=== PATIENT | female | born 1990 | race Caucasian/White ===

== ENCOUNTER 2023-10-08 14:20 | Outpatient (CLI) | payer BC, SELFPAY ==
--- NOTE | ~2023-10-08 | US_ITS ---
EXAMINATION: US OB transvaginal DATE: INDICATION: Spotting in first trimester. TECHNIQUE: Real-time transvaginal pelvic ultrasound was performed. COMPARISON: None. FINDINGS: The uterus measures 10.4 x 5.2 x 5.9 cm. There is an intrauterine gestational sac. A yolk sac is iden tified. The crown rump length measures 4 mm, which correlates with an estimated gestational ag e of 6 weeks and 1 day(s) (+/-) 4 day(s). heart motion is identified measuring 113 beats per mi nute (bpm) by M-mode Doppler. The right ovary measures 4.0 x 3.3 x 2.6 cm. The left ovary measures 3. 2 x 1.9 x 2.6 cm. There is no free fluid in the pelvis. IMPRESSION: 1. Single living intrauterine gestation with estimated date of delivery of 06/01/2024. Reviewed, dictated and finalized at location A. IMPRESSION: 1. Single living intrauterine gestation with estimated date of delivery of 05/20.
== END 2023-10-08 14:21 ==
LOC: MICIMG 14:22
PROVIDERS: PCP Obstetrics & Gynecology Gynecology; Visit Provider Obstetrics & Gynecology Gynecology
DX: O26.851 Spotting complicating pregnancy, first trimester (principal); Z3A.00 Weeks of gestation of pregnancy not specified
CPT/HCPCS: 76817

== ENCOUNTER 2023-10-24 08:29 | Emergency (ER) | payer BC, SELFPAY ==
--- NOTE | 2023-10-24 08:30 | ED.URI ---
HPI - URI/Sore Throat General Chief Complaint: Upper Respiratory Infection Stated Complaint: SORE THROAT Time Seen by Provider: 10/24/23 08:39 Source: patient and RN notes reviewed Mode of arrival: ambulatory Limitations: no limitations History of Present Illness HPI Narrative: 33 yo female presents to the [facility] with complaints of a sore throat since yesterday. Reports that she did take Tylenol. Did not measure her temperature. reports 8 weeks Treatments prior to arrival: acetaminophen Related Data Home Medications Medication Instructions Recorded Confirmed albuterol sulfate 90 mcg/actuation inhalation 10/24/23 aerosol inhaler Allergies Allergy/AdvReac Type Severity Reaction Status Date / Time No Known Allergies Allergy Verified 10/24/23 08:39 Review of Systems Review of Systems: All systems reviewed & are unremarkable except as noted in HPI and below Constitutional: Constitutional: Reports no additional constitutional complaints Eyes: Eyes: Reports no additional eye complaints ENT: Reports as per HPI and Reports sore throat Cardiovascular: Cardiovascular: Reports no additional cardiovascular complaints, Denies chest pain and Denies dyspnea Respiratory: Respiratory: Reports no additional respiratory complaints, Denies chest congestion, Denies cough and Denies dyspnea Gastrointestinal: Gastrointestinal: Reports no additional gastrointestinal complaints, Denies abdominal pain, Denies nausea and Denies vomiting Musculoskeletal: Musculoskeletal: Reports no additional musculoskeletal complaints Integumentary/Breasts: Skin/Breast: Reports system reviewed and no additional complaints, except as docu Neurologic: Reports system reviewed and no additional complaints, except as documented Psychiatric: Psychiatric: Reports no additional psychiatric complaints Allergic/Immunologic: Allergic/Immunologic: Reports no additional allergic/immunologic complaints [facility] Past Medical History Medical History (Updated 10/24/23 @ 08:57 by Maria C Wright APRN) Asthma Social History Social History (Updated 10/24/23 @ 08:54 by Maria C Wright APRN) Living arrangements: with family Gender identity (if verbalized by the patient): Female Comments At the time of my signature, I reviewed and agree with the nursing past medical, surgical, social, and family history. There is no relevant family history pertinent to the patient complaint. Exam Const: General: cooperative, healthy appearing, comfortable, no acute distress, well developed, alert and well nourished Nutritional Appearance: well nourished Orientation/consciousness: patient oriented x3 Limitations: no limitations HENMT: Head: normal to inspection Ears: hearing grossly normal bilaterally and external ears normal Face/Nose/Sinus: Normal external nose present, Normal nares present, Normal nasal mucous membranes and turbinates present, normal facial exam and face symmetric Face and sinus: normal facial exam and face symmetric Throat: uvula midline, abnormal tonsil bilateral erythema and hypertrophy 2+; no exudates, posterior oropharynx abnormal erythema; no edema and no exudates and no uvular edema Eyes: General: appearance normal, both eyes and all related structures Alignment and Position: alignment normal Periorbital: periorbital findings normal Pupils: Equal, round and reactive pupils present EOM: EOMs intact bilaterally Neck: Neck: normal visual inspection, full ROM, no lymphadenopathy and no meningeal signs Chest: Chest palpation & inspection: normal inspection of the chest Resp: Effort & Inspection: normal respiratory effort and able to speak in complete sentences Auscultation: clear to auscultation bilaterally, no crackles, no rales, no rhonchi and no wheezes Cardio: Rate: regular rate Rhythm: regular rhythm Skin: General skin exam: normal color and no rashes or lesions noted Lesions: no lesions Rashes: no rashes Trauma: no
[2023-10-24 08:46] VITALS: BP 123/82; PULSE 89; RESP 16; TEMP 36.6; O2SAT 99
== END 2023-10-24 09:01 | disposition home or self-care (01) ==
PROVIDERS: Emergency Provider Nurse Practitioner; PCP Obstetrics & Gynecology Gynecology
DX: J02.0 Streptococcal pharyngitis (principal); J45.909 Unspecified asthma, uncomplicated
CPT/HCPCS: 87880; 99213; G0463

== ENCOUNTER 2024-01-31 11:15 | Outpatient (CLI) | payer BC, SELFPAY ==
--- NOTE | ~2024-01-31 | US_ITS ---
EXAMINATION: US OB /maternal detail DATE: 01/31/2024 12:13 INDICATION: anatomic survey. TECHNIQUE: Real-time ultrasound of the pelvis was performed. COMPARISON: Ultrasound 10/08/2023 FINDINGS: There is a single living fetus in vertex presentation. The placenta is posterior, 6.2 cm from the ce rvix. The cervical length is 3.3 cm on transabdominal images, which is normal. heart rate is 15 4 beats per minute (bpm). The amniotic fluid volume is subjectively normal. The following biometric data were obtained: Biparietal diameter (BPD): 5.5 cm; head circumference (HC): 21.3 cm; abdominal circumference (AC): 18 .0 cm; femur length (FL): 4.1 cm. These measurements are concordant. Estimated weight is 566 g +/- 85 g, which correlates with the 72nd percentile when 06/01/24 is u sed as estimated date of delivery. As single measurements, these parameters are each equal to the following estimated gestational ages: BPD: 22 weeks 6 days. HC: 23 weeks 3 days. AC: 22 weeks 6 days. FL: 23 weeks 3 days. estimated gestational age based solely on measurements from this exam is 23 weeks 1 days +/- 1 weeks 4 days. The cerebral ventricles, cerebellum, cisterna magna, lip, and spine are normal. The heart is normal. The diaphragm, stomach, kidneys, and bladder are normal. There are two umbilical arteries to yield a 3-vessel cord. The cord insertion is normal. IMPRESSION: 1. Single living fetus in vertex presentation. 2. Estimated weight is 566 g +/- 85 g, which correlates with the 72nd percentile when 06/01/24 is used as estimated date of delivery. This date was set by ultrasound on 10/08/2023. 3. Normal anatomic survey. Reviewed, dictated and finalized at location A. IMPRESSION: 1. Single living fetus in vertex presentation. 2. Estimated weight is 566 g +/- 85 g, which correlates with the 72nd pe rcentile when 06/01/24 is used as estimated date of delivery. This date was set by ultrasound on 10/08/2023. 3. Normal anatomic survey.
== END 2024-01-31 11:16 | disposition home or self-care (01) ==
LOC: MICIMG 11:17
PROVIDERS: PCP Obstetrics & Gynecology Gynecology; Visit Provider Obstetrics & Gynecology Gynecology
DX: Z36.9 Encounter for antenatal screening, unspecified (principal)
CPT/HCPCS: 76805

== ENCOUNTER 2024-03-19 09:55 | Outpatient (CLI) | payer BC, SELFPAY ==
--- NOTE | ~2024-03-19 | US_ITS ---
EXAMINATION: US OB follow up DATE: 03/19/2024 10:18 INDICATION: Size greater than dates. TECHNIQUE: Real-time ultrasound of the pelvis was performed. COMPARISON: Ultrasound 01/31/2024 FINDINGS: There is a single living fetus in vertex presentation. The placenta is posterior. heart rate i s 153 beats per minute (bpm). The amniotic fluid index is 15.1 cm, which is normal. The following biometric data were obtained: Biparietal diameter (BPD): 7.8 cm; head circumference (HC): 28.7 cm; abdominal circumference (AC): 27 .7 cm; femur length (FL): 5.6 cm. These measurements are concordant. Estimated weight is 1664 g +/- 250 g, which correlates with the 87th percentile when 06/01/24 is used as estimated date of delivery. As single measurements, these parameters are each equal to the following estimated gestational ages: BPD: 31 weeks 2 days. HC: 31 weeks 4 days. AC: 31 weeks 5 days. FL: 29 weeks 2 days. estimated gestational age based solely on measurements from this exam is 31 weeks 0 days +/- 2 weeks 1 days. IMPRESSION: 1. Single living fetus in vertex presentation. 2. Estimated weight is 1664 g +/- 250 g, which correlates with the 87th percentile when 5 is used as estimated date of delivery. This date was set by ultrasound on 10/08/2023. Reviewed, dictated and finalized at location B. IMPRESSION: 1. Single living fetus in vertex presentation. 2. Estimated weight is 1664 g +/- 250 g, which correlates with the 87th percentile when 06/01/24 is used as estimated date of delivery. This date was se t by ultrasound on 10/08/2023.
== END 2024-03-19 09:56 | disposition home or self-care (01) ==
PROVIDERS: PCP Advanced Practice Midwife; Visit Provider Advanced Practice Midwife
DX: O36.63X0 Maternal care for excessive fetal growth, third trimester, not applicable or unspecified (principal); Z3A.31 31 weeks gestation of pregnancy
CPT/HCPCS: 76816

== ENCOUNTER 2024-05-07 02:49 | Inpatient (IN) | payer BC, SELFPAY ==
[2024-05-07] VITALS (157 sets, daily range): BP systolic 77–133; BP diastolic 37–117; PULSE 76–246; RESP 16–20; TEMP 36.1–36.9; O2SAT 96–100; BMI 38.8
[2024-05-07 03:35] LABS: Basophils Absolute Auto 0.1 K/mm3 (0.0-0.1); Basophils Percent Auto 0.4 % (0.2-1.2); Eosinophils Absolute Auto 0.4 K/mm3 (0-0.3); Eosinophils Percent Auto 2.6 % (0-4.4); Hematocrit 33.1 % (37.0-47.0); Hemoglobin 11.2 g/dL (12.0-15.0); Immature Granulocyte Absolute 0.08 K/mm3 (0.00-0.031); Immature Granulocyte Percent A 0.6 % (0-0.5); Lymphocytes Absolute Auto 2.65 K/mm3 (0.9-3.2); Lymphocytes Percent Auto 19.7 % (18.3-44.2); Mean Corpuscular HGB Conc 33.8 g/dl (32-36); Mean Corpuscular Hemoglobin 29.9 pg (26-34); Mean Corpuscular Volume 88.3 fl (80-100); Mean Platelet Volume 10.7 fl (7.4-10.4); Monocytes Absolute Auto 0.7 K/mm3 (0.1-0.6); Monocytes Percent Auto 5.3 % (2.6-8.5); Neutrophils Absolute Auto 9.6 K/mm3 (1.3-6.7); Neutrophils Percent Auto 71.4 % (45.5-73.1); Platelet Count Result 257 k/mm3 (150-375); Red Blood Count 3.75 M/mm3 (4.2-5.4); Red Cell Distribution Width 12.7 % (11.5-14.5); White Blood Count 13.5 K/mm3 (4.5-10.0)
[2024-05-07] MEDS: LACTATED RINGERS 1,000 ML 125 ML IV CONT ×3 (03:45→06:48)
[2024-05-07] MEDS: AMPICILLIN 2 GM/NS 100 ML 2 GM/100 ML BAG 200 GM (03:45)
--- NOTE | 2024-05-07 03:49 | P.PNAN_ITS ---
Anes - Eval Pre Procedure Procedure: Labor epidural Date/Time: 05/07/24 03:49 Surgeon: Iglesia Preop Diagnosis: Abdominal pain with contractions Pre Op Diagnosis: Leaking fluid Patient Data Age: 33 Gender: F Height: 1.63 m Weight: 102.7 kg Last Vital Signs Pulse 96 05/07/24 03:45 BP 112/70 05/07/24 03:45 Allergies Allergy/AdvReac Type Severity Reaction Status Date / Time SEASONAL Allergy Mild Congested Uncoded 05/07/24 03:26 Home Medications ?Medication ?Instructions ?Recorded ?Confirmed ?Type albuterol sulfate 90 mcg/actuation See Rx Instructions .Route .COMPLEX 10/24/23 10/24/23 History aerosol inhaler amoxicillin 875 mg tablet 875 mg PO Q12H #20 tabs 10/24/23 Rx Laboratory Tests 05/07/24 03:28 WBC 13.5 H K/mm3 (4.5-10.0) RBC 3.75 L M/mm3 (4.2-5.4) Hgb 11.2 L g/dL (12.0-15.0) Hct 33.1 L % (37.0-47.0) MCV 88.3 fl (80-100) MCH 29.9 pg (26-34) MCHC 33.8 g/dl (32-36) RDW 12.7 % (11.5-14.5) Plt Count 257 k/mm3 (150-375) MPV 10.7 H fl (7.4-10.4) Immature Gran % (Auto) 0.6 H % (0-0.5) Neut % (Auto) 71.4 % (45.5-73.1) Lymph % (Auto) 19.7 % (18.3-44.2) Kemper % (Auto) 5.3 % (2.6-8.5) Eos % (Auto) 2.6 % (0-4.4) Baso % (Auto) 0.4 % (0.2-1.2) Lymph # (Auto) 2.65 K/mm3 (0.9-3.2) Kemper # (Auto) 0.7 H K/mm3 (0.1-0.6) Eos # (Auto) 0.4 H K/mm3 (0-0.3) Baso # (Auto) 0.1 K/mm3 (0.0-0.1) Abs Immat Gran (auto) 0.08 H K/mm3 (0.00-0.031) Absolute Neuts (auto) 9.6 H K/mm3 (1.3-6.7) Absolute Nucleated RBC 0.000 K/mm3 (0.0-0.012) Nucleated RBC % 0.0 % (0.0-0.2) RPR Pending HIV 1&2 Ab/P24 Ag 4thGn Pending : gestational age HCG: positive Patient hx anesthesia problems: none Family hx anesthesia problems: none Results Review: All pre-operative results and documents have been reviewed as part of the pre- operative evaluation. [facility] Past Medical History Medical History Morbid obesity and not yet delivered Condyloma Asthma Family History Family History Grandparent Diabetes mellitus Social History Social History Substance use: never Living arrangements: with family Gender identity (if verbalized by the patient): Female Spiritual care concerns: No Exam Day of Procedure 05/07/24 03:49 Patient weight: morbidly obese Airway: Mallampati scale class II
[2024-05-07 04:25] LABS: Rapid Plasma Reagin Non-Reactive (NonReactive)
[2024-05-07 04:26] LABS: HIV 1/2 Ab P24 Ag Result Negative (Negative)
--- NOTE | 2024-05-07 04:37 | LDADM ---
This patient, Sultana Ramirez, was admitted to Labor/Delivery/Recovery 106 on 05/07/24 at 02:49. Plans for labor, pain management and were discussed with patient. Patient/family oriented to hospital policies and general routines including ID bracelet, bed and alarms, visiting hours, pain management, procedures, bathroom and other care routines, personal items, smoking policy, room service/diet and guest tray routines, security routines, and visiting hours. Patient/Family are encouraged to report perceived risks to care and to ask questions if they do not understand what they are told or what they should do. See OBIX for further documentation.
[2024-05-07] MEDS: ACETAMINOPHEN 500 MG TABLET 1000 MG (05:10)
--- NOTE | 2024-05-07 05:24 | WPDOBADMIT ---
Obstetrics - Admit Note Admission Note: record reviewed. No pertinent additions to the history and/or any subsequent changes in the physical findings that are not consistent with the expected course of the were found. Additions to the history and/or subsequent changes in the physical findings follow. Pt arrived with ROM at 0200 this am, clear fluid.
--- NOTE | 2024-05-07 05:25 | P.PNOB_ITS ---
Pain Control Date/time seen: 05/07/24 05:10 Pain control: epidural Pelvic Exam Dilation (cm): 4 Effacement (%): 50 station: -2 Amniotic membrane status: Ruptured Contractions Monitor mode: External Contraction frequency: 3 (3-5) Contraction pattern: Regular Contraction intensity: Moderate Status Comments: FHTs 135 baseline, moderate variability, +accelerations. Assessment and Plan Plan: continuous present management Comments: CNM to bedside. Discussed plan of care. No evidence of infection at this time. SVE unchanged. Pt receiving ampicillin for unknown GBS/PROM. If no cervical change after next dose of ampicillin, plan to start pitocin augmentation. 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 Anticipate vaginal . Will update Dr. Parekh.
[2024-05-07] MEDS: OXYTOCIN 30 UNITS/NS 500 ML 30 UNITS/500 ML BAG IV CONT (06:31)
[2024-05-07] MEDS: CALCIUM CARBONATE (TUMS) 500 MG (200 MG ELEMENTAL) PO (06:48)
[2024-05-07] MEDS: LORATADINE 10 MG TABLET PO (06:48)
[2024-05-07] MEDS: AMPICILLIN 1 GM/NS 50 ML 1 GM/50 ML BAG IVPB (07:45)
--- NOTE | 2024-05-07 11:22 | P.PCNOB_ITS ---
OB - Vaginal Delivery Note Procedure Delivery date: 05/07/24 Events: Premature Rupture of Membranes Induction method: None Delivery augmentation: Pitocin Delivery monitor: External FHT and Internal Uterine Route of delivery: Episiotomy description: None Laceration Description: Superficial (periurethral) Specimen: Yes (placenta) Quantitative Blood Loss (ml): 325 Anesthesia type: Epidural Disposition: Floor Complications: No immediate complications Narrative: Sultana arrived after spontaneous rupture membranes at home. Antibiotics were given for unknown GBS and status. Pitocin was given for augmentation of labor. She progressed steadily to complete dilation and pushed extremely well with contractions. She brought the head to a crown and delivered immedia tely thereafter. There was good restitution observed in and tight double nuchal cord was identified. The anterior and posterior shoulders delivered smoothly and the remainder of the infant was delivered in the somersault fashion. The nuchal cord was reduced and the was placed on the maternal abdomen. After 1 minute of life, the cord was doubly clamped and cut. Cord gases, cord blood, cord segment were obtained. The placenta delivered spontaneously and was found to be intact. A 1.5 cm very superficial periurethral laceration was noted but was hemostatic and did not require repair. Uterine tone remained firm and there was excellent hemostasis. All deliveries counts correct. Mother and baby skin to skin in the delivery room. [place] Baby Date of : 05/07/24 Time of : 11:05 Gestational Age by Date: 36 Infant gender: Male Weight (pounds): 0 (unavailable at the time of this note) presentation: vertex position: Right Occiput Anterior Placenta delivery description: Spontaneous and Normal Configuration Cord Vessel Description: 3 Vessels, Nuchal Cord (x2 ), Tight and Delayed Cord Clamping score one minute: 8 score five minutes: 9
--- NOTE | 2024-05-07 11:29 | P.DS_ITS ---
DS: Admitting Diagnosis Discharge Date 05/09/[address] Lafleur Admitting Diagnosis PROM DS: Discharge Diagnosis Discharge Diagnosis (1) (normal spontaneous vaginal delivery): Code(s): O80 - Encounter for full-term uncomplicated delivery Status: Acute (2) Patient is a currently breast-feeding mother: Code(s): Z39.1 - Encounter for care and examination of lactating mother Status: Acute (3) Rubella non-immune status, delivered, current hospitalization: Code(s): O99.892 - Other specified diseases and conditions complicating childbirth; Z28.39 - Other underimmunization status Status: Acute OB - DS: Summary Hospital Course Hospital Course: Uncomplicated OB Procedures : Ultrasound OB Procedures Intrapartum: Spontaneous Vag Delivery and GBS prophylaxis OB Procedures: : None Peripartum Data Delivery Method: Natural Vaginal Laceration Description: Superficial (periurethral) Episiotomy description: None complications: none Status at Discharge Functional status at discharge: independent ambulation Overall status at discharge: patient is progressing back to baseline Time Spent with Patient Time attestation: Total time spent providing and/or coordinating discharge services: DS: Data Data Completed and Pending Labs on day of discharge: Labs from last 24 hours 05/07/24 03:28 WBC 13.5 H RBC 3.75 L Hgb 11.2 L Hct 33.1 L MCV 88.3 MCH 29.9 MCHC 33.8 RDW 12.7 Plt Count 257 MPV 10.7 H Immature Gran % (Auto) 0.6 H Neut % (Auto) 71.4 Lymph % (Auto) 19.7 Baldwin % (Auto) 5.3 Eos % (Auto) 2.6 Baso % (Auto) 0.4 Lymph # (Auto) 2.65 Baldwin # (Auto) 0.7 H Eos # (Auto) 0.4 H Baso # (Auto) 0.1 Abs Immat Gran (auto) 0.08 H Absolute Neuts (auto) 9.6 H Absolute Nucleated RBC 0.000 Nucleated RBC % 0.0 RPR Non-reactive HIV 1&2 Ab/P24 Ag 4thGn Negative Blood Type O Positive Antibody Screen Negative Discharge Plan Discharge Attending physician on discharge: Mel Parekh Consulting providers: Kiarra Srivastava; Droege,Andre E. Jr. Discharging Clinician: Godfrey Lafleur Patient Disposition: Home, Self-Care Activity: may shower and pelvic rest Diet: as tolerated and regular Discharge Instructions: Continue taking your vitamin and any other supplements as previously directed (Examples: Iron, Vitamin D). You may take Tylenol 1000mg over the counter every 6 hours as needed for pain. Do not exceed 4000mg of Tylenol daily. You may continue using tucks pads and dermoplast spray if needed for a few more days. Depression * Notify provider for signs or symptoms. These may include- * Feelings: Feeling anxious, angry, hopeless, guilt, or loss of interest/pleasure in activities you normally enjoy. Mood swings or panic attacks. * General: Extreme fatigue, loss of your appetite, feeling restless. Crying excessively, irritability, insomnia * Psychological: Lack of concentration, depression or fear, unwanted thoughts * Weight: Significant gain or loss * Safety: Thoughts of harming yourself or your baby. Education: Mom and Baby Guide Given to: Mother Follow-Up: Call your delivering provider's office for an appointment to be seen in: 4 Weeks Mom and baby should come to the [facility] for the follow-up appointment. Appointment Date/Time: May 11, 2024 at 9:00 am What to expect at your follow-up visit: Blood Pressure Check Physical Assessment Call [phone] if you are unable to keep your appointment time. BREAST CARE: * Wear a snug supportive bra. * For engorgement discomfort: Breast Feeding: * Apply warm moist washcloths * Express milk as needed to relieve engorgement * Wear loose clothing Bottle Feeding: * May apply ice packs * For sore nipples: * Identify correct latch-on * Apply warm moist washcloths before and after nursing * Air dry nipples after nursing * May apply Lansinoh cream to nipples EPISIOTOMY/PERINEAL CARE: * Until bleeding stops, use your melody bottle after urinating * Change your pad frequently throughout the day * You may take sitz baths several times a day (fill your bathtub with warm water and soak for 20 minutes.) Do NOT bathe in the water * No tub baths until seen by your physician - You may shower ACTIVITY: * Rest as much as possible. * Do not exercise or lift anything heavier than your baby (such as laundry or other children.) * Avoid stairs or driving as much as possible. * Do not put anything into the vagina. No douching, tampons, or sexual activity until seen by physician. NOTIFY PHYSICIAN IF YOU HAVE ANY QUESTIONS OR IF ANY OF THE FOLLOWING SYMPTOMS OCCUR: * If your episiotomy or incision becomes red, swollen, or more painful than what you have experienced in the hospital. * If your vaginal bleeding becomes foul smelling. * If your vaginal bleeding becomes more heavy than a period or if your bleeding changes from pink to bright red. However, you may pass an occasional walnut- sized clot once or twice for the first week . * If you experience a sharp, shooting pain in you calves. * If you discover a hard, reddened area on your breast or if you experience flu- like symptoms. DIET: * Eat regular, well-balanced meals. * Drink plenty of fluids daily. If , drink to thirst. Patient Language: Lao Stand Alone Forms: General Discharge Information Follow-up/Referrals: Kiarra Srivastava CNM [Primary Care Provider] - 6 Weeks (6 weeks ) Discharge Medications: New ibuprofen 600 mg tablet 600 mg PO Q6H PRN (Reason: pain) Qty: 30 0RF Continued albuterol sulfate 90 mcg/actuation HFA aerosol inhaler See Rx Instructions .ROUTE .COMPLEX Rx Instructions: see instructions fluticasone propion-salmeterol [Wixela Inhub] 100-50 mcg/dose blister with device 1 inh INHALATION BID Date of admission: 05/07/24 02:49 Primary Care Provider: Kiarra Srivastava Admitting Provider: Mel Parekh Attending physician on admission: Godfrey Lafleur Condition: Stable
[2024-05-07] MEDS: OXYTOCIN 30 UNITS/NS 500 ML 30 UNITS/500 ML BAG 125 UNITS IV CONT (11:31)
[2024-05-07] MEDS: DOCUSATE SODIUM 100 MG CAPSULE PO (15:52)
--- NOTE | 2024-05-07 18:16 | PC.NURSE ---
1515. Met with patient to assess and discuss needs related to feeding. Mother states it is her intention to exclusively breastfeed. Encouraged mother to breastfeed 8-12 times in 24 hours (approximately every 2-3 hours), watching for early feeding cues. If infant is sleepy, unwrap and place baby skin to skin. Discussed signs that is effectively , i.e. sufficient voids and stools, jaundice within normal limits, <10% weight loss from . Mother educated on milk production, supply and demand, and expectations for in the immediate period. Encouraged feeding on demand and feeding durations of 15 minutes or greater. Discussed breast/nipple care with good hand hygiene, signs of a correct latch, listening for swallows and documenting feedings on the feeding sheet. Mother instructed to call for assistance if infant will not feed every 3 hours, if there is discomfort with , or if mother has any other questions or concerns. resources provided including the Mom and Baby Guide and name/number on communication board. Mother verbalized understanding. Updated patient?s primary RN with education provided.???
[2024-05-07] MEDS: ACETAMINOPHEN 325 MG TABLET 650 MG PO (18:50)
--- NOTE | 2024-05-07 19:49 | PC.NURSE ---
1930. Consulted with patient to assess needs related to . Infant latched optimally to the right breast in cross cradle position. Education given to the mother of how to visualize the suckling (with good rocking jaw motion) swallows (dropping of the lower jaw) and how to listen for drinking at the breast (the ka sound). The was able to maintain latch without discomfort to mother. Nipple care reviewed with optimal latch, good positioning and using clean hands when touching her breast. Mother voiced understanding of the education shared, to call for assistance if the infant does not latch or if there is discomfort with . Reported to the Primary RN.
--- NOTE | 2024-05-07 19:53 | PC.NURSE ---
1930. Breast pump provided due to infant not wanting to suck for longer than 1-2 sucks at at time, infants last feeding 1230. Instructions given on cleaning, care, usage, that there should be no pain, pumping schedule for milk production, collection, and storage of human milk. Patient was assessed for correct placement, flange size (size 24) , to pump for comfort and nipple stretching/stimulation for adequate milk production every 3 hours (8 times in 24 hours) 1-2 times at night. Parents are encouraged to record the pumping schedule on the feeding sheet.?Mother voiced understanding of the education shared along with mom/baby guide and the pump measurement, flange fit handout for additional resource information. Reported to the Primary RN.
[2024-05-07] MEDS: FLUTICASONE/SALMETEROL 45-21 MCG INHALER 1 PUFF 2 PUFF INHALATION (20:55)
[2024-05-07] MEDS: IBUPROFEN 600 MG TABLET PO (22:25)
[2024-05-08 05:40] VITALS: BP 104/73; PULSE 71; RESP 18; TEMP 36.6; O2SAT 100
--- NOTE | 2024-05-08 07:40 | PC.NURSE ---
0740- Observed mother latching to the left breast in cross cradle hold. She does a great job of supporting her breast and encouraging baby. He opened wide and latched well, suckling consistently. Encouraged mother to keep him going as long as he will. Baby had just spit up some yellow colostrum in the nursery and mom was encouraged that he was getting something at the breast. Observed feeding for about 5 minutes. Educated mother that if infant continues to go long stretches between feedings and only feeds for a short time, she should pump regularly and supplement with whatever she gets. 0820- Baby only breastfed for a total of 5 minutes so we got mom pumping. She already had a breast pump in the room. Instructions given on cleaning, care, usage, that there should be no pain, pumping schedule for milk production, collection, and storage of human milk. Patient was assessed for correct placement, flange size, to pump for adequate milk production every 3 hours (8 times in 24 hours) 1-2 times at night.?Mother voiced understanding of the education shared along with mom/baby guide. Encouraged parents to give whatever breastmilk mom is able to pump. Reported to the Primary RN. 0845- Mother had more than 10ml of pumped milk after her first pumping session. Reviewed use of the colostrum chart collector and that she doesn't need to use them when she is able to pump greater volumes. Encouraged use of the bottle nipple to help baby practice sucking. Slow flow and regular nipples provided. Reported to primary RN.
[2024-05-08 07:50] VITALS: BP 116/66; PULSE 79; RESP 16; TEMP 36.5; O2SAT 98
--- NOTE | 2024-05-08 08:13 | P.PNOB_ITS ---
OB - PN: Subj Subjective Date/time seen: 05/08/24 0740 Interval history: Post Day 1 from . Doing well. Urinating without difficulty. Denies passing any large clots. Denies dizziness with ambulating. Tolerating po food and fluids. Bonding with infant. Patient comments: pain well controlled baby status: nursing well feeding status: exclusively breast feeding OB - PN: Obj Data Labs 05/07/24 03:28 OB - PN A/P Assessment and Plan (1) (normal spontaneous vaginal delivery): Code(s): O80 - Encounter for full-term uncomplicated delivery Status: Acute (2) Patient is a currently breast-feeding mother: Code(s): Z39.1 - Encounter for care and examination of lactating mother Status: Acute (3) Rubella non-immune status, delivered, current hospitalization: Code(s): O99.892 - Other specified diseases and conditions complicating childbirth; Z28.39 - Other underimmunization status Status: Acute Assessment and Plan: Plan MMR prior to DC Plan day: 1 Plan: routine care Time Spent With Patient Time: Total time spent is greater than 50% in coordination of care (as documented) at patient's floor/unit and/or counseling patient: Review of Systems 2 Review of Systems: All systems reviewed & are unremarkable except as noted in HPI and below Exam 2 Narrative: Alert and oriented. Mood is pleasant and cooperative. Perineum with minimal edema. Fundus firm and below umbilicus. Const: General: cooperative, healthy appearing, no acute distress and alert Orientation/consciousness: patient oriented x3 Limitations: no limitations Resp: Effort & Inspection: normal respiratory effort and able to speak in complete sentences Cardio: Rate: regular rate GI: Inspection: normal to inspection GI Palp: Yes Soft to palpation : General: Yes bladder normal to palpation External Female Exam: other (lochia WNL) Bimanual exam- vagina & uterus: bladder normal to palpation O ther: Fundus firm and below U Skin: General skin exam: normal color and no rashes or lesions noted Neuro: General: patient oriented x3 and moves all extremities Cognition (Neuro): normal cognition Speech: normal speech Sensory Exam: normal sensation Extrem: General: normal to inspection and no calf tenderness Psych: Appearance: grossly normal Mental Status: mental status grossly normal Affect: normal affect Thought process: Normal thought process present
[2024-05-08] MEDS: MULTIVIT/MIN/PREN/FOL AC/IRON TABLET 1 TAB PO (09:51)
[2024-05-08] MEDS: IBUPROFEN 600 MG TABLET PO (09:51)
[2024-05-08] MEDS: DOCUSATE SODIUM 100 MG CAPSULE PO ×2 (09:51→22:30)
[2024-05-08 10:45] LABS: Hemoglobin 11.1 g/dL (12.0-15.0)
[2024-05-08] MEDS: ACETAMINOPHEN 325 MG TABLET 650 MG PO (18:42)
[2024-05-08 19:35] VITALS: BP 128/78; PULSE 84; RESP 14; TEMP 36.6; O2SAT 98
[2024-05-08 19:44] VITALS: PULSE 84; RESP 14; O2SAT 98
[2024-05-09] MEDS: IBUPROFEN 600 MG TABLET PO ×2 (00:06→09:19)
[2024-05-09] MEDS: FLUTICASONE/SALMETEROL 45-21 MCG INHALER 1 PUFF 2 PUFF INHALATION (07:25)
[2024-05-09 08:26] VITALS: BP 129/88; PULSE 89; RESP 18; TEMP 36.7; O2SAT 99
[2024-05-09] MEDS: MULTIVIT/MIN/PREN/FOL AC/IRON TABLET 1 TAB PO (09:21)
[2024-05-09] MEDS: DOCUSATE SODIUM 100 MG CAPSULE PO (09:21)
--- NOTE | 2024-05-09 09:27 | P.PNOB_ITS ---
OB - PN: Subj Subjective Date/time seen: 05/09/24 09:27 Narrative: Pain OK. Would like to go home. OB - PN: Obj Data Labs 05/08/24 09:59 Labs: Laboratory Results - last 24 hr 05/08/24 09:59 Hgb 11.1 L Hct 33.0 L OB - PN A/P Plan day: 2 Comments: A: PPD#2, doing well. P: Home to f/u 6 weeks. Exam 2 Psych: Other: AVSS ABD soft, nontender, fundus firm EXT nontender
[2024-05-09 12:53] VITALS: BP 122/80; PULSE 89; RESP 18; TEMP 36.2; O2SAT 98
--- NOTE | 2024-05-09 15:31 | PC.NURSE ---
Addendum entered by Amie Gonzales RN 05/09/24 15:33: Provider is Rudy Srivastava not Ignacio Cruz Original Note: Pt refused the M-M-R vaccine, she states she wants to wait and talk to Ignacio Cruz in the the office about getting it.
--- NOTE | 2024-05-09 17:30 | PC.NURSE ---
Pt discharged to a no-care bed.
[2024-05-11 09:56] VITALS: BP 129/70; PULSE 88; RESP 18; TEMP 36.9; O2SAT 100
== END 2024-05-09 17:30 | disposition home or self-care (01) | DRG 805 ==
LOC: ANHLDR 05-11 10:56 → ANHOB2 05-11 10:56
PROVIDERS: Admitting Provider Obstetrics & Gynecology Gynecology; PCP Advanced Practice Midwife; Visit Provider Obstetrics & Gynecology
DX: O42.013 Preterm premature rupture of membranes, onset of labor within 24 hours of rupture, third trimester (principal); O60.14X0 Preterm labor third trimester with preterm delivery third trimester, not applicable or unspecified; Z37.0 Single live birth; Z3A.36 36 weeks gestation of pregnancy; O71.82 Other specified trauma to perineum and vulva; O69.1XX0 Labor and delivery complicated by cord around neck, with compression, not applicable or unspecified; Z28.39 Other underimmunization status
CPT/HCPCS: 36415; 85014; 85018; 85025; 86592; 86703; 86850; 86900; 86901; 88307; 94640; A9270; G0432; J0290; J2590; J2795; J7120

== ENCOUNTER 2024-11-23 10:50 | Outpatient (CLI) | payer BC, SELFPAY ==
--- NOTE | ~2024-11-23 | CT_ITS ---
EXAMINATION: CT sinus wo con DATE: 11/23/2024 11:15 INDICATION: Shortness of breath TECHNIQUE: Computed tomography (CT) of the paranasal sinuses was performed without intravenous contra st. The dose-length product was 266.74 mGy-cm. Automated exposure control and iterative reconstructio n technique were employed. COMPARISON: None FINDINGS: There is mucosal thickening of the ethmoid and maxillary sinuses. Leftward nasal septal dev iation. Ostiomeatal units are patent. Mastoids are pneumatized. No mucoperiosteal reaction. No air-fl uid levels. IMPRESSION: 1. Mild sinus disease. Reviewed, dictated and finalized at location A. IMPRESSION: 1. Mild sinus disease.
--- NOTE | ~2024-11-23 | XR_ITS ---
EXAM/PROCEDURE: XR chest 2V - 11/23/2024 10:53 CDT HISTORY: 34 years old Female with SOB TECHNIQUE: Two view(s) of the chest. COMPARISON: None available. FINDINGS: LUNGS/ PLEURA: No focal consolidation. No appreciable pneumothorax or large pleural effusion. HEART/ MEDIASTINUM: Heart appears normal in size. BONES: No acute osseous abnormality. OTHER: Visualized upper abdomen is unremarkable. IMPRESSION: No acute process. Reviewed, dictated and finalized at location A. IMPRESSION: No acute process.
== END 2024-11-23 10:51 | disposition home or self-care (01) ==
LOC: MICIMG 10:50
DX: J32.9 Chronic sinusitis, unspecified (principal); J45.51 Severe persistent asthma with (acute) exacerbation
CPT/HCPCS: 70486; 71046